=== PATIENT | female | born 2000 | race Caucasian/White ===

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

== ENCOUNTER → 2023-02-23 | Outpatient (CLI) | payer OTHER, SELFPAY ==
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
== END | disposition home or self-care (01) ==
LOC: MRI 11:30
PROVIDERS: PCP Pediatrics; Referring Provider Chiropractor; Visit Provider Chiropractor
DX: S13.4XXA Sprain of ligaments of cervical spine, initial encounter (principal); S16.1XXA Strain of muscle, fascia and tendon at neck level, initial encounter
CPT/HCPCS: 72141

== ENCOUNTER 2024-06-15 16:48 | Emergency (ER) | payer OTHER, SELFPAY ==
[2024-06-15 16:50] VITALS: BP 120/93; PULSE 87; RESP 18; TEMP 36.6; O2SAT 98; BMI 24.3
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
--- NOTE | 2024-06-15 17:55 | CT_ITS ---
PROCEDURE: BRAIN/HEAD WITHOUT CONTRAST 06/15/2024 REASON FOR EXAM: HEAD INJURY TECHNIQUE: Head CT without intravenous contrast. Coronal and Sagittal reconstruction series were provided. One or more dose reduction techniques were used (e.g., Automated exposure control, adjustment of the mA and/or kV according to patient size, use of iterative reconstruction technique. RADIATION DOSE SUMMARY: CTDlvol: 70 mGy DLP: 813 mGycm FINDINGS: No acute intracranial hemorrhage, mass effect or midline shift. There are no abnormal extra-axial fluid collections present. The ventricles and sulci are within normal limits. The calvarium is intact. Visualized paranasal sinuses are unremarkable. The mastoids are well aerated. CT/Brain/Head without Contrast IMPRESSION: No acute intracranial hemorrhage, mass effect or midline shift. Reading Location: [id number]
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
[2024-06-15 18:51] VITALS: BP 118/70; PULSE 56; RESP 16; TEMP 36.6; O2SAT 99
== END 2024-06-15 18:52 | disposition home or self-care (01) ==
PROVIDERS: Emergency Provider Emergency Medicine; PCP Nurse Practitioner Family; Visit Provider Emergency Medicine
DX: S06.0X0A Concussion without loss of consciousness, initial encounter (principal); V89.0XXA Person injured in unspecified motor-vehicle accident, nontraffic, initial encounter
CPT/HCPCS: 70450; 72040; 99282; A4216

== ENCOUNTER → 2024-09-26 | Outpatient (CLI) | payer OTHER, SELFPAY | END | disposition home or self-care (01) | LOC: LABSPEC 11:13 | PROVIDERS: PCP Nurse Practitioner Family; Visit Provider Physician Assistant | DX: R30.0 Dysuria (principal) | CPT/HCPCS: 87086 ==